=== PATIENT | male | born 1990 | race African-American/Black ===

== ENCOUNTER 2017-12-07 23:29 | Emergency (ER) | payer MEDICAID ==
[~2017-12-07] VITALS: Ht 170.2 cm; Wt 63.0 kg
[2017-12-08] MEDS ORDERED: MORPHINE SULFATE 4 MG/ML CPJ (NOT FOR IM USE) IV STA (00:22)
[2017-12-08] MEDS ORDERED: ONDANSETRON HCL 4MG/2ML INJ IV STA (00:22)
[2017-12-08 01:21] LABS: BASOPHILS % 0.3 % (0.0-2.0); EOSINOPHILS % 0.3 % (0.0-5.0); HEMATOCRIT. 52.1 % (42.0-52.0); HEMOGLOBIN. 17.8 g/dL (14.0-18.0); LYMPHOCYTES % 16.4 % (20.0-50.0); MEAN CORPUSCULAR HEMOGLOBIN 32.8 pg (28.0-32.0); MEAN CORPUSCULAR VOLUME 96.1 fL (80.0-94.0); MEAN PLATELET VOLUME 8.9 fl (7.4-10.4); MONOCYTES % 6.5 % (2.0-8.0); NEUTROPHILS % 76.5 % (40.0-76.0); PLATELET 166 x1000/uL (130-400); RED BLOOD CELL COUNT 5.43 mill/uL (4.7-6.1); RED CELL DISTRIBUTION WIDTH 13.4 % (11.6-14.6)
[2017-12-08 01:24] LABS: CHLORIDE 101 mEq/L (98-107)
[2017-12-08 01:31] LABS: PROTHROMBIN TIME 10.3 sec (9.1-11.1)
[2017-12-08 03:51] VITALS: BP 128/76
== END 2017-12-08 03:55 | disposition home or self-care (01) ==
LOC: ER 23:29
DX: R10.33 Periumbilical pain (principal); R11.2 Nausea with vomiting, unspecified; F17.210 Nicotine dependence, cigarettes, uncomplicated
CPT/HCPCS: 36415; 74176; 80053; 83690; 85025; 85610; 96374; 96375; 99285; 99406; J2270; J2405; Z7610